=== PATIENT | male | born 1940 | race Caucasian/White ===

== ENCOUNTER → 2020-11-27 13:34 | Outpatient (BNVA) | payer MEDICARE, SELFPAY | PROVIDERS: Family Provider Nurse Practitioner Family; PCP Nurse Practitioner Family; Visit Provider Registered Nurse | DX: R41.3 Other amnesia (principal) | CPT/HCPCS: 81000 ==

== ENCOUNTER → 2020-12-12 09:41 | Outpatient (BNVA) | payer MEDICARE, SELFPAY | PROVIDERS: Family Provider Nurse Practitioner Family; PCP Nurse Practitioner Family; Visit Provider Nurse Practitioner | DX: R41.3 Other amnesia (principal) | CPT/HCPCS: 36415; 80053; 82607; 84443; 85025; 99205 ==

== ENCOUNTER 2020-12-12 11:19 | Outpatient (CLI) | payer MEDICARE, SELFPAY ==
[2020-12-12 12:10] LABS: Basophils % 0.6 %; Eosinophils # 0.1 10^3/uL (0.0-0.8); Eosinophils % 2.3 %; Hematocrit 50.4 % (42.0-52.0); Hemoglobin 16.1 g/dL (11.7-16.6); Lymphocytes # 1.2 10^3/uL (0.8-4.8); Lymphocytes % 22.5 %; Mean Corpuscular HGB Conc 31.9 g/dL (30.0-36.0); Mean Corpuscular Hemoglobin 29.1 pg (28.0-34.0); Mean Corpuscular Volume 91.1 fL (80-94); Mean Platelet Volume 9.2 fL (7.4-10.4); Monocytes # 0.4 10^3/uL (0.2-0.9); Neutrophils # 3.57 10^3/uL (1.8-7.7); Neutrophils % 67.2 %; Nucleated Red Blood Cells % 0 %; Platelet Count 147 10^3/cmm (130-400); Red Blood Count 5.53 10^6/uL (4.1-5.3); Red Cell Distribution Width 13.2 % (12.1-15.1); White Blood Count 5.3 10^3/uL (4.0-10.0)
[2020-12-12 13:12] LABS: Alanine Aminotransferase 12 U/L (0-41); Albumin Level 4.2 g/dL (3.5-5.2); Alkaline Phosphatase 91 IU/L (40-130); Aspartate Amino Transferase 17 U/L (0-40); Blood Urea Nitrogen 12 mg/dL (8-23); Calcium 9.8 mg/dL (8.5-10.5); Carbon Dioxide 33 mmol/L (22-29); Chloride 100 mmol/L (98-107); Globulin 3.2 g/dL (1.3-4.6); Glucose 96 mg/dL (65-115); Osmolality Calculated 290 mOsm/kg (285-295); Sodium 140 mmol/L (136-145); Thyroid Stimulating Hormone 5.23 uIU/mL (0.27-4.20); Total Bilirubin 0.7 mg/dL (0.15-1.2); Total Protein 7.4 g/dL (6.6-8.7); Vitamin B12 342 pg/mL (232-1245)
== END 2020-12-12 11:20 | disposition home or self-care (01) ==
LOC: LAB 11:24
PROVIDERS: PCP Registered Nurse; Visit Provider Nurse Practitioner
DX: R41.3 Other amnesia (principal)
CPT/HCPCS: 36415; 80053; 82607; 84443; 85025

== ENCOUNTER 2021-02-01 08:45 | Outpatient (CLI) | payer MEDICARE, SELFPAY ==
--- NOTE | 2021-02-01 10:33 | CT_ITS ---
WS: [id number] CT scan of the head, 02/01/2021 Clinical Data: R41.3 - Other amnesia Comparison: None. DLP: 859.[address] scans at [facility] use at least one of these dose optimization techniques: automat ed exposure control; mA and/or kV adjustment per patient size (includes targeted exams where dose is matched to clinical indication); or iterative reconstruction. Findings: The ventricular system is moderately dilated without shift. No recent infarct or hemorrhage is seen. There are no abnormal intracerebral masses. The cerebellum and brainstem are not remarkable. Bony windows of the skull and skull base show no fractures or erosions. The mastoid air cells, market research intern al auditory canals, sella turcica, intraorbital contents, and paranasal sinuses are unremarkable. CT/CT head wo con* [id number] Impression: Moderate cerebral atrophy.
== END 2021-02-01 08:46 | disposition home or self-care (01) ==
LOC: RADWPI 08:50
PROVIDERS: PCP Registered Nurse; Visit Provider Nurse Practitioner
DX: R41.3 Other amnesia (principal); G31.9 Degenerative disease of nervous system, unspecified
CPT/HCPCS: 70450

== ENCOUNTER → 2021-02-21 14:01 | Outpatient (BNVA) | payer MEDICARE, SELFPAY | PROVIDERS: PCP Registered Nurse; Visit Provider Nurse Practitioner Family | DX: N39.0 Urinary tract infection, site not specified (principal); N40.0 Benign prostatic hyperplasia without lower urinary tract symptoms | CPT/HCPCS: 81003 ==

== ENCOUNTER → 2021-03-04 11:17 | Outpatient (BNVA) | payer MEDICARE, SELFPAY | PROVIDERS: PCP Registered Nurse; Visit Provider Registered Nurse | DX: N39.0 Urinary tract infection, site not specified (principal); F32.9 Major depressive disorder, single episode, unspecified; F02.80 Dementia in other diseases classified elsewhere, unspecified severity, without behavioral disturbance, psychotic disturbance, mood disturbance, and anxiety | CPT/HCPCS: 81000; 87086 ==

== ENCOUNTER 2021-04-09 14:55 | Outpatient (CLI) | payer MEDICARE, SELFPAY ==
--- NOTE | 2021-04-09 15:06 | CT_ITS ---
WS: [id number] CT HEAD TECHNIQUE: Noncontrast CT of the head obtained from the skullbase to the vertex. CLINICAL INFORMATION: R41.3 - Other amnesia COMPARISON: February 01, 2021 DLP: 992.[address] scans at [facility] use at least one of these dose optimization techniques: automat ed exposure control; mA and/or kV adjustment per patient size (includes targeted exams where dose is matched to clinical indication); or iterative reconstruction. FINDINGS: No evidence of intracranial hemorrhage or mass effect. Ventricular system and basal cisterns are verde nt. Moderate small vessel changes with moderate parenchymal volume loss. Chronic lacunar infarct righ t caudate. Intracranial vascular calcification. No extra-axial fluid collections. No evidence of mass or mass effect. Paranasal sinuses and mastoid air cells are well aerated. .Normal visualized soft tissues. CT/CT head wo con* [id number] IMPRESSION: 1. No evidence of intracranial hemorrhage or mass effect. 2. Moderate small vessel changes. Moderate parenchymal volume loss. 3. Chronic lacunar infarct right caudate. 4. No significant changes from previous.
== END 2021-04-09 14:56 | disposition home or self-care (01) ==
PROVIDERS: PCP Registered Nurse; Visit Provider Nurse Practitioner
DX: R41.3 Other amnesia (principal); I63.81 Other cerebral infarction due to occlusion or stenosis of small artery
CPT/HCPCS: 70450

== ENCOUNTER → 2021-04-18 08:36 | Outpatient (BNVA) | payer MEDICARE, SELFPAY | PROVIDERS: PCP Registered Nurse; Visit Provider Nurse Practitioner | DX: R79.89 Other specified abnormal findings of blood chemistry (principal); R89.9 Unspecified abnormal finding in specimens from other organs, systems and tissues | CPT/HCPCS: 84443 ==

== ENCOUNTER → 2021-04-22 08:05 | Outpatient (BNVA) | payer MEDICARE, SELFPAY | PROVIDERS: PCP Registered Nurse; Visit Provider Specialist | DX: G31.83 Neurocognitive disorder with Lewy bodies (principal); F02.80 Dementia in other diseases classified elsewhere, unspecified severity, without behavioral disturbance, psychotic disturbance, mood disturbance, and anxiety | CPT/HCPCS: 96116; 99215 ==

== ENCOUNTER → 2021-06-11 11:02 | Outpatient (BNVA) | payer MEDICARE, SELFPAY | PROVIDERS: PCP Registered Nurse; Visit Provider Registered Nurse | DX: N39.0 Urinary tract infection, site not specified (principal); N40.0 Benign prostatic hyperplasia without lower urinary tract symptoms; L89.41 Pressure ulcer of contiguous site of back, buttock and hip, stage 1 | CPT/HCPCS: 81000 ==

== ENCOUNTER → 2021-07-31 14:18 | Outpatient (BNVA) | payer MEDICARE, SELFPAY | PROVIDERS: PCP Registered Nurse; Visit Provider Nurse Practitioner Family | DX: N39.0 Urinary tract infection, site not specified (principal); R39.9 Unspecified symptoms and signs involving the genitourinary system | CPT/HCPCS: 81003 ==

== ENCOUNTER → 2021-09-11 11:52 | Outpatient (BNVA) | payer MEDICARE, SELFPAY | PROVIDERS: PCP Registered Nurse; Visit Provider Nurse Practitioner | DX: G31.83 Neurocognitive disorder with Lewy bodies (principal); F02.80 Dementia in other diseases classified elsewhere, unspecified severity, without behavioral disturbance, psychotic disturbance, mood disturbance, and anxiety; Z87.891 Personal history of nicotine dependence | CPT/HCPCS: 99213; 99214 ==

== ENCOUNTER 2021-10-20 17:12 | Emergency (ER) | payer MEDICARE, SELFPAY ==
[2021-10-20 17:23] VITALS: BP 138/78; PULSE 84; RESP 16; TEMP 36.8; O2SAT 94
--- NOTE | 2021-10-20 17:32 | W.ED.GENADLT ---
HPI - General Adult General: Chief complaint: General Medical Stated complaint: STOMA PROBLEMS Time Seen by Provider: 10/20/21 17:31 History of Present Illness: HPI narrative: 81-year-old male patient comes in today with complaints of difficulties with colostomy site. Patient reports that he is having difficulties with the adhering on the right aspect of the colostomy adhesive. Patient states that it seems to be leaking on the right more than usual. Patient appears well. Daughter also reports that he has had a cough and some shortness of breath he did have pneumonia at the end of August and has been recovering since. She thought to bring him in just to be evaluated for his cough and shortness of breath although it is better than when he was ill. Associated symptoms: Reports dyspnea Review of Systems General: Reports: 10 or more systems reviewed and unremarkable except in HPI and below Resp: Reports: dyspnea Skin/Breast: Reports: other (Leaking ostomy) [facility] ED PFSH: Medical History BPH without urinary obstruction Recurrent UTI Surgical History History of back surgery History of cholecystectomy History of colostomy History of neck surgery Family History Brother Heart disease Social History Alcohol intake: never Marital status: / Current occupational status: retired History of recent travel: No Physical Exam Const: COMMON NORMALS: no acute distress and patient oriented x3 GENERAL APPEARANCE: cooperative HENMT: COMMON NORMALS: normocephalic, TM's normal bilaterally and Normal external nose present HEAD & SCALP: normal to inspection and normocephalic NOSE: Normal external nose present TYMPANIC MEMBRANE: TM's normal bilaterally MOUTH: Normal oral and palatal mucosa present THROAT: posterior oropharynx normal Eye: GENERAL EYE: appearance normal, both eyes and all related structures Neck/C-Spine: COMMON NORMALS: full ROM Lymph: LYMPHATIC: no lymphadenopathy noted Chest: COMMONS NORMALS: normal inspection of the chest Resp: COMMON NORMALS: normal respiratory effort EFFORT & INSPECTION: Yes able to speak in complete sentences AUSCULTATION: wheezes Cardio: COMMON NORMALS: regular rate and regular rhythm RATE: regular rate RHYTHM: regular rhythm GI: COMMON NORMALS: Soft to palpation and non-tender AUSCULTATION: Yes normoactive bowel sounds PALPATION: Yes Soft to palpation OTHER: Ostomy looks healthy, no signs of significant erythema surrounding it. : COMMON NORMALS: Yes no CVA tenderness BLADDER/KIDNEY EXAM: Yes no CVA tenderness Back/Pelvis: COMMON NORMALS: no CVA tenderness and thoracic and lumbar spine normal to inspection Extremity: COMMON NORMALS: normal to inspection Neuro: COMMON NORMALS: patient oriented x3 and moves all extremities Psych: COMMON NORMALS: mental status grossly normal and cooperative Skin: COMMON NORMALS: no rashes or lesions noted GENERAL SKIN EXAM: no rashes or lesions noted Course Vital Signs: Vital signs: Vital Signs Temperature 98.2 F 10/20/21 17:23 Pulse Rate 84 10/20/21 17:23 Respiratory Rate 16 10/20/21 17:23 Blood Pressure 138/78 10/20/21 17:23 Pulse Oximetry 94 10/20/21 17:23 MDM - General Adult MDM Narrative: Medical decision making narrative: Patient was brought in by daughter for concerns of some shortness of breath due to recent pneumonia at end of August, and malfunction of the colostomy site. The daughter wanted the colostomy looked at just to make sure that it looks like it was well. Patient appears well. Patient did have some wheezes and light crackles noted in the left lower lung smith. Abdomen was soft nontender. Ostomy site was intact with pink ostomy no signs of significant surrounding redness. Differential diagnosis includes but not limited to pneumonia, gastroenteritis, infection of the colostomy. No significant infection was noted in the colostomy site on evaluation. Vital signs were normal. Chest x-ray did note some haziness in the left lower lung smith which may be suggestive of a early or resolving pneumonia. I will go ahead and place the patient on some doxycycline 100 mg twice a day to cover this. I reviewed this with family and patient who reported understanding and care plan. They will follow up with primary care for reevaluation in 3 to 5 days and also for referral to ostomy nurse. Discharge Plan Discharge Patient Disposition: Home Clinical Impression: Colostomy malfunction Dyspnea Qualifiers: Dyspnea type: dyspnea on exertion Qualified Code(s): R06.00 - Dyspnea, unspecified Pneumonia Qualifiers: Pneumonia type: due to unspecified organism Laterality: left Lung location: lower lobe of lung Qualified Code(s): J18.9 - Pneumonia, unspecified organism Condition: Stable Prescriptions: New doxycycline monohydrate 100 mg capsule 100 mg PO Q12H 7 Days Qty: 14 RF: 0 No Action dexamethasone PO RF: 0 amoxicillin-pot clavulanate PO RF: 0 donepezil [Aricept] 10 mg tablet 10 mg PO DAILY Qty: 30 RF: 6 memantine [Namenda] 10 mg tablet 10 mg PO BID Qty: 60 RF: 6 mirtazapine 15 mg tablet See Rx Instructions .ROUTE .COMPLEX Qty: 90 RF: 0 Discharge Orders: Discharge ED (Routine); Ordered 10/20/21 Ordered By: Zev Wan Referrals: Nuno Guzman FNP [Primary Care Provider] - Discharge Diet: Usual diet Discharge Activity: Increase activity as tolerated Patient Instructions: Opioid Safety Activity Restrictions/Additional Instructions: Home and rest. Follow-up with primary care for further assistance with colostomy and recheck on pneumonia. You may need to see a colostomy nurse for further treatment and assistance with care of the colostomy. This referral can be made from your primary care office and may be of benefit. Continue with routine care and return to the ER as needed. Coding Level of Care Code ED Cnc Operator Machinist for Rufus Grullon Exam Comprehensive
--- NOTE | 2021-10-20 17:41 | XRR_ITS ---
PROCEDURE INFORMATION: Exam: XR Chest Exam date and time: 10/20/2021 5:41 PM Age: 81 years old Clinical indication: Cough and dyspnea; Patient HX: HX pneumonia/sob/cough; Additional info: History of pneumonia, SOB TECHNIQUE: Imaging protocol: XR of the chest. Views: 1 view. COMPARISON: No relevant prior studies available. FINDINGS: Lungs: Hyperinflated emphysematous lungs. Mild increased interstitial markings at the left lung base. No lobar consolidation. Pleural spaces: Unremarkable. No pleural effusion. No pneumothorax. Heart/Mediastinum: Unremarkable. No cardiomegaly. Vasculature: Unfolding of the descending aorta. Bones/joints: Unremarkable. XR/XR chest 1V portable [id number] IMPRESSION: Hyperinflated emphysematous lungs. Mildly increased interstitial markings at the left lung base which may be chronic although superimposed infectious or inflammatory airways process is not excluded. No lobar consolidation. Radiation Dose CTDIVOL = (mGy): DLP = (mGy-cm)
== END 2021-10-20 18:19 | disposition home or self-care (01) ==
PROVIDERS: Emergency Provider Nurse Practitioner Family; PCP Registered Nurse
DX: K94.03 Colostomy malfunction (principal); R06.00 Dyspnea, unspecified; J18.9 Pneumonia, unspecified organism
CPT/HCPCS: 71045; 99282

== ENCOUNTER 2022-02-06 13:43 | Outpatient (CLI) | payer MEDICARE, SELFPAY ==
[2022-02-06] MEDS: iohexol 300 mg/mL 50 mL Btl PO (14:50)
--- NOTE | 2022-02-06 15:00 | CT_ITS ---
WS: [id number] CT ABDOMEN AND PELVIS WITH CONTRAST HISTORY: K43.9 - Ventral hernia without obstruction or gangrene Patient was unwilling to remove clothing to eliminate metal artifact and patient was unable to follow breathing instructions therefore this study is limited by motion and artifact. TECHNIQUE: Imaging performed of the abdomen and pelvis with IV contrast. Single phase imaging of the abdomen. Coronal and sagittal reformats are submitted. All CT scans at [facility] use at eve [facility] one of these dose optimization techniques: automated exposure control; mA and/or kV adjustment per patient size (includes targeted exams where dose is matched to clinical indication); or iterative re construction. IV CONTRAST: Omnipaque 300; 95 mL IV. Oral contrast: Yes. DLP: 1049.46 mGy.cm COMPARISON: None available. Lower thorax: Significant breathing motion artifact at the lung bases. No large area of consolidation . Heart is normal size. No hiatal hernia. Liver/biliary system: Normal size with no intrahepatic dilatation. Gallbladder: Status post cholecystectomy. Pancreas: Severely limited evaluation. No abnormality identified. Spleen: Normal size spleen. No mass or infarct. Adrenal glands: Normal. Right kidney: Negative as visualized. Left kidney: Negative as visualized. Aorta: Mild atherosclerosis and ectasia aorta. There is very mild aneurysmal dilatation in the infrar enal aorta to 2.8 cm. Heavy calcified plaque extends into the iliac arteries bilaterally. Lymphadenopathy: None. Free fluid: None. GI tract: Stomach is well distended. No small bowel obstruction. No colon obstruction. Appendix is no rmal. Abdominal wall: Multiple ventral wall hernias. There is a supraumbilical hernia in the midline just s lightly to the LEFT with the opening measuring 2.1 cm, contains fat only. There are additional heart is at the level of the umbilicus containing fat only. There may be smaller additional supraumbilical hernias but this area is distorted significantly by motion artifact. 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 Pelvis: Urinary bladder is moderately well distended. There is soft tissue presacral thickening and a few surgical clips. No prior studies for comparison. Internal canals are patent bilaterally and cont ain fat only. There is a small amount of fluid or soft tissue thickening along the RIGHT inguinal can al. There is no GI tract herniating into the inguinal canals. Bones: Osteopenia. LEFT femoral head osteonecrosis. RIGHT hemilaminectomy defect at L4. CT/CT abdomen pelvis w con* [id number] IMPRESSION: 1. Quality of this examination is significantly degraded by metal artifact and motion. Patient was unable to cooperate for this examination. 2. Umbilical and supraumbilical abdominal wall hernias containing fat only. 3. 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 No obstruction. 4. Bilateral fat-containing inguinal hernias. 5. Presacral soft tissue thickening of uncertain etiology. Patient was unable to provide adequate history. This may be all postoperative and posttreatment. N o prior studies for comparison to evaluate for interval change. 6. 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 7. Prior cholecystectomy.
[2022-02-06] MEDS: iohexol 300 mg/mL 100 mL Btl IV (15:56)
[2022-02-07 08:16] LABS: Blood Urea Nitrogen 15 mg/dL (8-23)
== END 2022-02-06 13:44 | disposition home or self-care (01) ==
PROVIDERS: PCP Registered Nurse; Visit Provider Surgery
DX: K43.9 Ventral hernia without obstruction or gangrene (principal); K40.90 Unilateral inguinal hernia, without obstruction or gangrene, not specified as recurrent; Z93.3 Colostomy status; K43.5 Parastomal hernia without obstruction or gangrene; I71.4 Abdominal aortic aneurysm, without rupture; Z90.49 Acquired absence of other specified parts of digestive tract
CPT/HCPCS: 74177; 82565; 84520

== ENCOUNTER → 2022-04-02 11:11 | Outpatient (BNVA) | payer BC, SELFPAY | PROVIDERS: PCP Registered Nurse; Visit Provider Nurse Practitioner Family | DX: N39.0 Urinary tract infection, site not specified (principal); R39.9 Unspecified symptoms and signs involving the genitourinary system | CPT/HCPCS: 81003 ==